=== PATIENT | female | born 1960 | race Caucasian/White ===

== ENCOUNTER → 2024-04-18 | Outpatient (CLI) | payer MEDICARE, SELFPAY ==
[2024-04-18 13:03] LABS: Creatinine, Serum 0.92 mg/dL (0.55-1.02); EST Glomerular Filtration Rate 65 mL/min (>60); Est Glom Filt Rate - Afr Amer 78 mL/min (>60)
== END | disposition home or self-care (01) ==
LOC: LAB 12:18
PROVIDERS: Referring Provider Specialist; Visit Provider Specialist
DX: I10 Essential (primary) hypertension (principal); N28.9 Disorder of kidney and ureter, unspecified
CPT/HCPCS: 36415; 82565

== ENCOUNTER → 2024-06-28 | Outpatient (CLI) | payer MEDICARE, SELFPAY ==
--- NOTE | 2024-06-28 09:50 | RAD_ITS ---
EXAM: ARTHROGRAM HIP W/ MRI CLINICAL HISTORY: Chronic right hip pain. COMPARISON: None. TECHNIQUE: The patient was in the supine position. The procedure as well as the benefits and possible complications including infection and bleeding were explained to the patient. Informed consent was obtained. The overlying skin was prepped and draped in the usual sterile fashion. Following local anesthetic application and under direct fluoroscopic guidance, a 22 gauge spinal needle was placed into the hip joint. 2 cc of Isovue-300 was injected for confirmation. Following this, 10 cc of MRI contrast was introduced. The patient tolerated the procedure well. The procedure was performed with the Elizabeth Cruz CNP. FINDINGS: Right hip arthrogram with 10 cc of MRI contrast for MRI examination. RAD/Arthrogram Hip w/ MRI IMPRESSION: Successful right hip arthrogram for MRI examination. The patient tolerated the procedure well. Reading Location: [place] [id number]
[2024-06-28] MEDS: Lidocaine 2% (5ml sdv) 5 ML VIAL.MPF INFILT (10:03)
[2024-06-28] MEDS: Iopamidol 10 ML in Syringe 1 EACH 600 ML INTRAARTIC (10:06)
--- NOTE | 2024-06-28 10:11 | MRI_ITS ---
PROCEDURE: MR arthrogram of the right hip. REASON FOR EXAM: Right hip pain. TECHNIQUE: After a fluoroscopically guided right hip joint injection, which will be reported separately, multiplanar, multisequence MRI images of the right hip were obtained. COMPARISON: Right hip arthrogram images from the same day. FINDINGS The included osseous structures of the pelvis and proximal femur are intact. Mild/moderate degenerative change right hip joint. There are overhanging margins of the superior lateral right acetabulum, which can predispose to pincer type femoral acetabular impingement. No loose intra-articular body. No evidence of right femoral head avascular necrosis. The included origin of the right hamstring complex is intact. Distal attachments of the right gluteus medius/minimus and iliopsoas tendons are intact. No gross pelvic mass or adenopathy. No sizable greater trochanteric bursal fluid collection. There is some mild increased T2 signal of the anterior superior labrum. No definite extension of contrast material into the substance of the right acetabular labrum to indicate a discrete labral tear. MRI/Lower Ext/Jt Only/W Contrast IMPRESSION: No acute bony abnormality of the right hip. [id number] degenerative baker ge of the right hip joint. Overhanging margins of the superolateral right acetabulum, which can be seen wi th pincer type femoral acetabular impingement. There is some mild increased T2 signal of the anterior superior labrum, without evidence of discrete tear. The findings could be due to mild labral degeneration. The gluteus medius/minimus tendons are intact. No sizable greater trochanteric bursal fluid collection. Reading Location: [facility]
[2024-06-28] MEDS: Gadoterate Meglumine Diluted 10 ML, Iopamidol 5 ML, Lidocaine 1% (20 ml mdv) 5 ML, Epin... INTRAARTIC (10:19)
== END | disposition home or self-care (01) ==
LOC: RAD 09:38
PROVIDERS: Referring Provider Specialist; Visit Provider Specialist
DX: M25.551 Pain in right hip (principal); G89.29 Other chronic pain
CPT/HCPCS: 27093; 73722; 77002; Q9967